=== PATIENT | female | born 1960 | race Caucasian/White ===

== ENCOUNTER 2017-03-24 11:00 | Emergency (ER) | payer MEDICAID ==
[~2017-03-24] VITALS: Ht 157.5 cm; Wt 68.0 kg
[2017-03-24 11:10] VITALS: BP_SYST 119
--- NOTE | 2017-03-24 11:32 | NUR ---
Ambulatory to hallway bed 1
--- NOTE | 2017-03-24 11:34 | NUR ---
Dr. Helms at bedside for evaluation
--- NOTE | 2017-03-24 11:35 | NUR ---
Pain lateral side left foot +swelling after missing a step and rolling foot. Able to ambulate, +pain with palpation. +pedal pulse, no deformity
[2017-03-24] MEDS ORDERED: IBUPROFEN 600 MG TABLET PO ONE (11:45)
[2017-03-24 12:00] VITALS: BP_SYST 121
--- NOTE | 2017-03-24 12:00 | NUR ---
Patient given written and verbal discharge instructions and verbalizes understanding. ER MD discussed with patient the results and treatment provided. Patient in stable condition. ID arm band removed. Rx of motrin given. Patient educated on pain management and to follow up with PMD. Pain Scale 3/10. Opportunity for questions provided and answered.
== END 2017-03-24 12:00 | disposition home or self-care (01) ==
LOC: SED 11:00
DX: S90.32XA Contusion of left foot, initial encounter (principal); W01.0XXA Fall on same level from slipping, tripping and stumbling without subsequent striking against object, initial encounter; Y93.89 Activity, other specified; Y92.89 Other specified places as the place of occurrence of the external cause; Y99.8 Other external cause status
CPT/HCPCS: 99284